=== PATIENT | male | born 1965 | race Caucasian/White ===

== ENCOUNTER 2017-06-21 14:48 | Inpatient (IN) | payer OTHER ==
[~2017-06-21] VITALS: Ht 177.8 cm; Wt 89.9 kg
--- NOTE | ~2017-06-21 | DS ---
Discharge Summary [facility] [address] [facility] [place]. [address] NAME: HANNAH NESBITT : 63 STATUS : DIS IN PAT#: [id number] AGE: 51 ADM/REG DATE : 06/21/17 MR#: [id number] REPORT SERV DATE: 06/23/17 DICTATED BY: BIB AUSTIN DATE: 06/23/17 REPORT STATUS : Draft TRANSCRIBED BY: MODL DATE: 06/23/17 ADMISSION DATE: 06/21/2017 DISCHARGE DATE: 06/23/2017 DISCHARGE DIAGNOSES: Include: 1. Left lower lobe pneumonia. 2. Sepsis. 3. Sinus tachycardia. 4. Active tobacco abuse. 5. Hypokalemia, this is stable. DISCHARGE MEDICINES: Are as follows, aspirin 81 mg daily, Plavix 75 mg daily, guaifenesin 600 mg twice a day for 10 more days, Mevacor 20 mg daily, metoprolol 12.5 mg p.o. twice a day, Advair 230/21 two puffs inhaled daily shortness of breath, nitroglycerin sublingual tablets p.r.n. for chest pain, and doxycycline 100 mg p.o. twice a day for seven more days. HISTORY OF PRESENT ILLNESS: This is a pleasant 51-year-old white male, who presented to the [facility] Emergency Room with shortness of breath, cough, fevers, and chest pain. Please see initial H and P of Dr. Rolan Rios, as patient is admitted to the Hospitalist Service for further evaluation and treatment. He was started on empiric antibiotic therapy. Lab work was ordered and obtained, and given supportive care. CONTINUATION IN HOSPITAL COURSE: The patient was seen by myself the following morning beginning on 06/22/2017, where he was continued on IV antibiotics, was feeling some better, still having some left pleuritic chest pain and coughing, which was productive. He had a white blood cell count that had fallen from 15.6 to 13.4. He had remained afebrile, and he had required some replacement of his potassium. Added guaifenesin to his medication regimen. Continued to wean his oxygen level down. Counseled him on his need to quit smoking. His Legionella and Strep pneumococcus antigens were checked and were negative. Procalcitonin level came back at 0.42. He was able to be de-escalated to p.o. 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 He did have one episode of slight bradycardia during this hospitalization with heart rates of 48. I have instructed him to decrease his metoprolol dosage down to 12.5 mg twice a day, which he was in agreement with. Imaging during this admission included a CTA of the chest, which showed dense left lower lobe consolidation, multifocal atelectatic changes throughout the lungs, most prominent in the base of the right lower lobe and lingula. No evidence for pulmonary embolus. Moderate to heavy coronary artery calcification and previous coronary artery stenting noted. Questions were answered extensively at bedside. ENRICO/CANDELARIA Discharge Summary [address] [address] NAME: HANNAH NESBITT : 63 STATUS : DIS IN PAT#: [id number] AGE: 51 ADM/REG DATE : 06/21/17 MR#: [id number] REPORT SERV DATE: 06/23/17 DICTATED BY: BIB [place]USTIN DATE: 06/23/17 REPORT STATUS : Draft TRANSCRIBED BY: CANDELARIA DATE: 06/23/17 Trevin Tomlinson NP Bib Austin MD / [id number] CC: Bib Austin MD
--- NOTE | ~2017-06-21 | HP ---
History And Physical [address] [place]. [address] NAME: HANNAH PATEL : 63 STATUS : ADM IN [facility]#: [id number] AGE: 51 ADM/REG DATE : 06/21/17 MR#: [id number] REPORT SERV DATE: 06/22/17 DICTATED BY: ANN SUAREZ DATE: 06/21/17 REPORT STATUS : Draft TRANSCRIBED BY: MODL DATE: 06/21/17 DATE OF ADMISSION: 06/21/2017 POINT OF ENTRY: [facility] Emergency Department. PRIMARY CARE PHYSICIAN: None at this time. PRIMARY SYSTEMS TESTER: Jose Spence M.D. CHIEF COMPLAINT: Shortness of breath, cough, fevers, and chest pain. HISTORY OF PRESENT ILLNESS: Mr. Patel is a 51-year-old gentleman with remote history of TTP which required plasmapheresis as well as coronary artery disease with recent myocardial infarction and stent placement at [facility] one to two months ago who presents to the emergency department with reports of a three to four-day history of fevers, night sweats, chills, dry cough, shortness of breath as well as significant pleuritic chest pain. The patient states his symptoms began all about three or four days ago. He does have a cough but denies any sputum production. Does endorse shortness of breath as well as fevers up to 100 degrees Fahrenheit with associated chills and night sweats. His main complaint is significant pleuritic chest pain primarily located in the left side with deep inspiration as well as coughing. Initial evaluation in the emergency department notable for a heart rate initially of 128. He was mildly hypoxemic on room air. White count was elevated at 15,600. Chest x-ray concerning for possible left lower lobe pneumonia. Troponin, EKG, and BNP were all unremarkable. The patient was subsequently started on IV fluids and antibiotics. Unfortunately, blood cultures were not obtained prior to administration of antibiotics. The patient was subsequently admitted to the Hospitalist Service for further evaluation and management. COMPREHENSIVE REVIEW OF SYSTEMS: Otherwise negative unless listed in the history present illness. PAST MEDICAL HISTORY: 1. Coronary artery disease with recent myocardial infarction with recent PCI at [facility]. 2. Remote history of TTP requiring plasmapheresis, etiology unknown. 3. Active tobacco abuse. SURGICAL HISTORY: 1. Back surgery. 2. Hernia repair surgery. 3. Cholecystectomy. History And Physical [address] [address] NAME: HANNAH PATEL : 63 STATUS : ADM IN [facility]#: [id number] AGE: 51 ADM/REG DATE : 06/21/17 MR#: [id number] REPORT SERV DATE: 06/22/17 DICTATED BY: ANN SUAREZ DATE: 06/21/17 REPORT STATUS : Draft TRANSCRIBED BY: CANDELARIA DATE: 06/21/17 ALLERGIES: NO KNOWN DRUG ALLERGIES. HOME MEDICATIONS: 1. Aspirin 81 mg daily. 2. Plavix 75 mg daily. 3. Advair two puffs inhalation daily p.r.n. 4. Lovastatin 20 mg daily. 5. Lopressor 25 mg daily. 6. Nitroglycerin 0.4 mg sublingual p.r.n. SOCIAL HISTORY: Denies any alcohol or illicits. Still smokes about one pack per day. This is down from two packs per day. FAMILY HISTORY: Mother with leukemia. Father and siblings with diabetes. LABS AND IMAGIN. White count 15.6, hemoglobin 15.5, hematocrit is 45.6, and platelet count is 327. INR is 1.1. 2. Sodium is 132, potassium 3.6, chloride 99, carbon dioxide 23, BUN 12, creatinine 1.11, glucose is 109, calcium is 8.8, and magnesium is 1.9. 3. Troponin is negative. BNP is 15.4. 4. Lactic acid is 2.3. 5. Chest x-ray per my review shows small left lower lobe infiltrate. 6. EKG per my review shows sinus tachycardia with a heart rate of 122, but no evidence of any acute ischemia or infarction. 7. ABG: A pH of 7.51, pCO2 of 29, pO2 of 54, bicarb 23, saturating 90% on room air. PHYSICAL EXAMINATION: VITAL SIGNS: Temperature is 99.9 degrees Fahrenheit, pulse is 128, respirations 20, saturating 90% on room air, blood pressure is 138/81. On recheck, blood pressure now 117/20 on 2 L nasal cannula. GENERAL: The patient is awake, alert, in no distress, resting comfortably in bed. He is a well-developed, well-nourished, male. Currently eating [employer]. HEENT: Atraumatic and normocephalic. Moist mucous membranes. Pupils are equal, round, and reactive to light and accommodation. Extraocular eye movements intact. No scleral icterus. NECK: No jugular venous distention. No carotid bruits. CARDIAC: Tachycardic rate, regular rhythm. No murmurs or gallops. Normal S1 and S2. LUNGS: Decreased breath sounds in the bilateral bases primarily due to pleuritic chest pain. Does have very mild inspiratory rhonchi and crackles in the left lung base. Otherwise, in no distress. ABDOMEN: Soft, nontender, and nondistended with good bowel sounds. No rebound, guarding, or rigidity. EXTREMITIES: Warm and perfused. No cyanosis, clubbing, or edema. SKIN: Warm and dry. PSYCH: Affect appropriate. NEURO: Alert and oriented x3. Cranial nerves II through XII grossly intact. Speech is normal. Gait is not assessed. History And Physical [address] [address] NAME: HANNAH PATEL : 63 STATUS : ADM IN [facility]#: [id number] AGE: 51 ADM/REG DATE : 06/21/17 MR#: [id number] REPORT SERV DATE: 06/22/17 DICTATED BY: ANN SUAREZ DATE: 06/21/17 REPORT STATUS : Draft TRANSCRIBED BY: CANDELARIA DATE: 06/21/17 ASSESSMENT AND PLAN: Mr. Patel is a 51-year-old, gentleman with history of coronary artery disease with recent myocardial infarction and stent placement who presents with a four-day history of fevers, night sweats, chills, shortness of breath, cough, and pleuritic chest pain, found to have evidence of a left lower lobe pneumonia as well as sepsis. PROBLEM LIST: 1. Left lower lobe pneumonia. 2. Sepsis. 3. Hypoxemia. 4. Pleuritic chest pain. 5. History of coronary artery disease with myocardial infarction. 6. Active tobacco abuse. PLAN: 1. Left lower lobe pneumonia. We will place the patient on antibiotics of cefepime and vancomycin. Given recent hospitalization, this would technically qualify for healthcare-associated pneumonia. We will try to obtain sputum cultures and urinary antigens. Unfortunately, blood cultures were not obtained prior to administration of IV antibiotics. We will check these regardless. Aggressive pulmonary toilet. 2. Sepsis. He meets criteria with tachycardia and leukocytosis as well as reports of fevers at home. Lactic acid is 2.3. We will need to repeat in three hours. Also checking blood cultures, sputum cultures, urinary antigens. Aggressive IV fluid hydration as well as antibiotics. 3. Pleuritic chest pain. I suspect this is all related to left lower lobe pneumonia above. However, given his pleuritic chest pain in the setting of hypoxemia and tachycardia, we will check a stat CT of the chest to rule out PE. 4. History of coronary artery disease with recent myocardial infarction and PCI placement. The patient reports compliance with aspirin and Plavix. EKG and troponin here were nonischemic. Given reports of chest pain which again I think is secondary to one above, we will trend out cardiac enzymes. Try to obtain records from [facility]. 5. Hypoxemia again secondary to left lower lobe pneumonia above. Pulmonary toilet with DuoNeb and pulmonary toilet. 6. Active tobacco abuse. Counseled him for tobacco cessation. 7. Deep venous thrombosis prophylaxis. Lovenox subcu. 8. Code status. Patient is full code. LUCA/CANDELARIA Ann Suarez MD / [id number] History And Physical [address] [address] NAME: HANNAH PATEL : 63 STATUS : ADM IN [facility]#: [id number] AGE: 51 ADM/REG DATE : 06/21/17 MR#: [id number] REPORT SERV DATE: 06/22/17 DICTATED BY: ANN SUAREZ DATE: 06/21/17 REPORT STATUS : Draft TRANSCRIBED BY: MODL DATE: 06/21/17 CC: MD Jose Woodall III, M.D.
[~2017-06-21 14:48] MED LIST: FOLIC PO; LEVAQUIN750 MG PO; MIRALAXPKT PO; MULTIVITAMI1 PO; NICODERM C14 MG/24 H TOP; NO HOME MEDS; P10 PO; P20 PO; PROAIR HFA INH; PROTONIX PO; SPIRIVA INH; SYN.025B PO; SYN125 PO; T PO
[2017-06-21 15:44] LABS: BASOPHILS 0.1 %; BASOPHILS ABSOLUTE 0.02 10/3/uL (0.0-0.16); EOSINOPHILS 0.1 %; EOSINOPHILS ABSOLUTE 0.01 10/3/uL (0.0-0.53); ER CBC TAT 0 Hrs 08 Mins; HEMATOCRIT 45.6 % (40.0-51.0); HEMOGLOBIN 15.5 g/dL (13.6-17.8); IMMATURE GRANULOCYTES 0.3 %; IMMATURE GRANULOCYTES ABSOLUTE 0.05 10/3/uL (0.0-0.11); LYMPHOCYTES 8.6 %; LYMPHOCYTES ABSOLUTE 1.34 10/3/uL (0.67-4.30); MANUAL DIFF NO %; MEAN CORPUSCULAR VOLUME 88.2 fL (80-100); MEAN PLATELET VOLUME 9.3 fL (9.2-13.0); MONOCYTES 8.9 %; MONOCYTES ABSOLUTE 1.38 10/3/uL (0.21-1.20); NEUTROPHILS ABSOLUTE 12.76 10/3/uL (2.02-8.40); PLATELET COUNT 327 10/3/uL (150-400); RBC DISTRIBUTION WIDTH 14.5 % (12.0-16.0); RED CELL COUNT 5.17 10/6/uL (4.7-6.1); WHITE BLOOD CELLS 15.6 10/3/uL (4.5-10.5)
[2017-06-21 15:50] LABS: INTERNATIONAL NORMAL RATI 1.1 UNITS (-); PARTIAL THROMBO TIME 29.7 SEC (22.5-37.2); PROTIME (NOT ORD) 14.5 SEC (12.0-14.5)
[2017-06-21 15:59] LABS: BUN (BLOOD UREA NITROGEN) 12 MG/DL (6-23); CALCIUM, SERUM 8.8 MG/DL (8.5-10.4); CHEST PAIN PROFILE TAT 0 Hrs 23 Mins; CHLORIDE, SERUM 99 MMOL/L (96-112); CO2 (CARBON DIOXIDE) 23 MMOL/L (24-34); CREATININE 1.11 MG/DL (0.70-1.30); GFR AFRICAN AMERICAN 88 ML/MIN (>=60); GFR NON AFRICAN AMERICAN 76 ML/MIN (>=60); GLUCOSE, SERUM 109 MG/DL (60-99); POTASSIUM, SERUM 3.6 MMOL/L (3.5-5.3); TROPONIN I <0.02 NG/ML (<0.05)
[2017-06-21 16:01] LABS: SODIUM, SERUM 132 MMOL/L (135-148)
[2017-06-21] MEDS ORDERED: MEVACOR PO (18:18)
[2017-06-21] MEDS ORDERED: PLAVIX PO (18:18)
[2017-06-21] MEDS ORDERED: NITROSTAT0.4 MG SL (18:18)
[2017-06-21] MEDS ORDERED: LOP25 PO (18:19)
[2017-06-21] MEDS ORDERED: ADVAIR230P INH (18:19)
[2017-06-21] MEDS ORDERED: ASAB PO (18:19)
[2017-06-21 18:55] LABS: LACTATE 2.3 MMOL/L (0.3-2.4)
[2017-06-21 23:24] LABS: CK-MB 2.9 NG/ML; CPK 120 U/L (0-200); TROPONIN I <0.02 NG/ML (<0.05)
[2017-06-22 05:19] LABS: BASOPHILS 0.1 %; BASOPHILS ABSOLUTE 0.02 10/3/uL (0.0-0.16); EOSINOPHILS 0.4 %; EOSINOPHILS ABSOLUTE 0.06 10/3/uL (0.0-0.53); HEMOGLOBIN 12.9 g/dL (13.6-17.8); IMMATURE GRANULOCYTES 0.3 %; IMMATURE GRANULOCYTES ABSOLUTE 0.04 10/3/uL (0.0-0.11); LYMPHOCYTES 11.6 %; LYMPHOCYTES ABSOLUTE 1.56 10/3/uL (0.67-4.30); MEAN CORPUS HGB CONC 33.2 g/dL (32.0-36.0); MEAN CORPUSCULAR HEMOGLOB 29.7 pg (26.0-34.0); MEAN CORPUSCULAR VOLUME 89.6 fL (80-100); MEAN PLATELET VOLUME 9.5 fL (9.2-13.0); MONOCYTES 9.1 %; MONOCYTES ABSOLUTE 1.22 10/3/uL (0.21-1.20); NEUTROPHILS 78.5 %; NEUTROPHILS ABSOLUTE 10.52 10/3/uL (2.02-8.40); PLATELET COUNT 302 10/3/uL (150-400); RBC DISTRIBUTION WIDTH 14.5 % (12.0-16.0); RED CELL COUNT 4.34 10/6/uL (4.7-6.1); WHITE BLOOD CELLS 13.4 10/3/uL (4.5-10.5)
[2017-06-22 05:25] LABS: HEMATOCRIT 38.9 % (40.0-51.0); MANUAL DIFF NO %
[2017-06-22 05:31] LABS: BUN (BLOOD UREA NITROGEN) 12 MG/DL (6-23); CALCIUM, SERUM 8.5 MG/DL (8.5-10.4); CHLORIDE, SERUM 103 MMOL/L (96-112); CO2 (CARBON DIOXIDE) 24 MMOL/L (24-34); CREATININE 0.94 MG/DL (0.70-1.30); GFR AFRICAN AMERICAN 108 ML/MIN (>=60); GFR NON AFRICAN AMERICAN 93 ML/MIN (>=60); POTASSIUM, SERUM 3.2 MMOL/L (3.5-5.3); SODIUM, SERUM 136 MMOL/L (135-148); TROPONIN I <0.02 NG/ML (<0.05)
[2017-06-22 05:32] LABS: CK-MB 3.3 NG/ML; CPK 99 U/L (0-200); GLUCOSE, SERUM 131 MG/DL (60-99)
[2017-06-23 07:04] LABS: BASOPHILS 0.2 %; BASOPHILS ABSOLUTE 0.02 10/3/uL (0.0-0.16); HEMATOCRIT 39.1 % (40.0-51.0); HEMOGLOBIN 13.1 g/dL (13.6-17.8); IMMATURE GRANULOCYTES 0.4 %; IMMATURE GRANULOCYTES ABSOLUTE 0.04 10/3/uL (0.0-0.11); LYMPHOCYTES 10.9 %; LYMPHOCYTES ABSOLUTE 1.09 10/3/uL (0.67-4.30); MANUAL DIFF NO %; MEAN CORPUS HGB CONC 33.5 g/dL (32.0-36.0); MEAN CORPUSCULAR HEMOGLOB 30.1 pg (26.0-34.0); MEAN CORPUSCULAR VOLUME 89.9 fL (80-100); MEAN PLATELET VOLUME 9.5 fL (9.2-13.0); MONOCYTES 6.7 %; MONOCYTES ABSOLUTE 0.67 10/3/uL (0.21-1.20); NEUTROPHILS 78.8 %; NEUTROPHILS ABSOLUTE 7.91 10/3/uL (2.02-8.40); PLATELET COUNT 300 10/3/uL (150-400); RBC DISTRIBUTION WIDTH 14.8 % (12.0-16.0); RED CELL COUNT 4.35 10/6/uL (4.7-6.1)
[2017-06-23 07:09] LABS: BUN (BLOOD UREA NITROGEN) 13 MG/DL (6-23); CALCIUM, SERUM 8.6 MG/DL (8.5-10.4); CHLORIDE, SERUM 108 MMOL/L (96-112); CO2 (CARBON DIOXIDE) 23 MMOL/L (24-34); CREATININE 0.73 MG/DL (0.70-1.30); GFR AFRICAN AMERICAN 124 ML/MIN (>=60); GFR NON AFRICAN AMERICAN 107 ML/MIN (>=60); GLUCOSE, SERUM 86 MG/DL (60-99); POTASSIUM, SERUM 3.9 MMOL/L (3.5-5.3); SODIUM, SERUM 139 MMOL/L (135-148)
[2017-06-23 07:31] LABS: PROCALCITONIN 0.42 ng/mL (<0.5)
[2017-06-23] MEDS ORDERED: HUMI PO (10:16)
[2017-06-23] MEDS ORDERED: DORYX100 MG PO (10:18)
== END 2017-06-23 10:55 | disposition home or self-care (01) | DRG 871 ==
LOC: ER 14:48 → 6NO 21:32
PROVIDERS: Hospitalist; Internal Medicine; Nurse Practitioner Acute Care; Nurse Practitioner Family
DX: A41.9 Sepsis, unspecified organism (principal); J18.9 Pneumonia, unspecified organism; I25.10 Atherosclerotic heart disease of native coronary artery without angina pectoris; I25.2 Old myocardial infarction; E87.6 Hypokalemia; R09.02 Hypoxemia; F17.210 Nicotine dependence, cigarettes, uncomplicated; Z79.82 Long term (current) use of aspirin; Z79.02 Long term (current) use of antithrombotics/antiplatelets; Z95.5 Presence of coronary angioplasty implant and graft; Z90.49 Acquired absence of other specified parts of digestive tract
CPT/HCPCS: 36600; 71020; 71275; 80048; 82550; 82553; 83605; 83735; 83880; 84132; 84145; 84484; 85025; 85610; 85730; 87040; 87449; 93005; 94640; 96365; 96375; 99285; A9270-GY; J0456; J0692; J1170; J3370